=== PATIENT | male | born 1970 | race Caucasian/White ===

== ENCOUNTER 2018-08-01 16:52 | Inpatient (IN) | payer SELFPAY ==
[2018-08-01] MEDS ORDERED: NA CHLORIDE 0.9% 1,000 ML ONE ×3 (17:57→20:48)
[2018-08-01] MEDS ORDERED: NA CHLORIDE 0.9% 1,000 ML with FOLIC ACID 1 MG, THIAMINE HCL 100 MG, MULTIVITAMINS INJ ... IV ONE ×4 (18:00)
[2018-08-01 18:11] LABS: Absolute Lymphocytes (CBC) 0.8 K/uL (0.7-4.9); Absolute Monocytes 0.4 K/uL (0.1-1.3); Absolute Neutrophil 4.1 K/uL (1.8-8.0); Basophils % 1.1 % (0-1.3); Eosinophils % 0.5 % (0-4.4); Hematocrit 43.1 % (39.6-49.0); Lymphocytes % 14.7 % (15.3-44.8); MPV 8.8 fL (7.6-11.3); Monocytes % 7.9 % (3.3-12.3); RBC Red Blood Cell Count 4.83 M/uL (4.33-5.43)
[2018-08-01 18:14] LABS: Protime INR 1.1
[2018-08-01 18:25] LABS: ALT/SGPT 215 U/L (12-78); AST/SGOT 243 U/L (15-37); Albumin 3.7 g/dL (3.4-5.0); Alkaline Phosphatase 55 U/L (45-117); BUN Blood Urea Nitrogen 21 mg/dL (7-18); Bicarbonate 22 mmol/L (21-32); Bilirubin Direct 0.8 mg/dL (0-0.2); Bilirubin Total 1.4 mg/dL (0.2-1.0); Glucose Level 103 mg/dL (74-106); Magnesium 2.5 mg/dL (1.8-2.4); Potassium 3.9 mmol/L (3.5-5.1); Protein, Total 6.6 g/dL (6.4-8.2); Sodium Level 130 mmol/L (136-145); Troponin (Emerg Dept Use Only) 0.08 ng/mL (0.0-0.045)
[2018-08-01 18:38] LABS: Creatine Phosphokinase 1848 U/L (39-308)
[2018-08-01] MEDS ORDERED: ENOXAPARIN 100 MG/ML SYR SQ ONE (19:09)
[2018-08-01] MEDS ORDERED: ASPIRIN 81 MG CHEWABLE TABLET ONE (19:09)
[2018-08-01] MEDS ORDERED: METOPROLOL TAR 25 MG TAB ONE (19:09)
--- NOTE | 2018-08-01 19:40 | ER ---
Nurse's Notes [facility] Name: Maged Yanez Age: 48 yrs Sex: Male : 1970 Arrival Date: 08/01/2018 Time: 16:54 Bed 14 Private MD: Diagnosis: Rhabdomyolysis;Alcohol abuse with intoxication;Non-ST elevation (NSTEMI) myocardial infarction;Acute kidney failure Presentation: 08/01 16:55 Presenting complaint: Patient states: intermittent CP, shakiness and decreased appetite ss x 4 days. Pt reports that he recently went on a drinking binge for unknown period of time. Pt reports he has not drank in 4 days. Friend reports that he checked patient's blood sugar at home where it was 52. Transition of care: patient was not received from another setting of care. Onset of symptoms was July 28, 2018. Risk Assessment: Do you want to hurt yourself or someone else? Patient reports no desire to harm self or others. Initial Sepsis Screen: Does the patient meet any 2 criteria? HR > 90 bpm. Does the patient have a suspected source of infection? No. Patient's initial sepsis screen is negative. Care prior to arrival: None. 16:55 Method Of Arrival: Ambulatory ss 16:55 Acuity: GREGOR 2 ss Historical: - Allergies: 16:58 PENICILLINS; ss - PMHx: 16:58 Bipolar disorder; Hypertension; ss - Immunization history:: Adult Immunizations up to date. - Social history:: Smoking status: Patient/guardian denies using tobacco. - Ebola Screening: : Patient denies exposure to infectious person Patient denies travel to an Ebola-affected area in the 21 days before illness onset. Screenin:05 Abuse screen: Denies threats or abuse. Nutritional screening: decreased appetite x 4 rb1 days. Tuberculosis screening: No symptoms or risk factors identified. Fall Risk None identified. Assessment: 17:05 General: Appears uncomfortable, Behavior is calm, cooperative, pt. went on a 4 day rb1 drinking binge, last drink is unknown. Decreased appetite x 4 days. c/o weakness.. Pain: Complains of pain in anterior aspect of left upper chest Pain does not radiate. Pain currently is 5 out of 10 on a pain scale. Pain began 2-3 days ago. Neuro: Level of Consciousness is awake, alert, obeys commands, Oriented to person, place, time, situation, Reports weakness in generalized. Cardiovascular: Capillary refill < 3 seconds is brisk in bilateral fingers. Respiratory: Airway is patent Respiratory effort is even, unlabored, Respiratory pattern is regular, symmetrical. GI: Reports diarrhea, since x 1 day. : No signs and/or symptoms were reported regarding the genitourinary system. Derm: Skin is pink, warm \T\ dry. Musculoskeletal: Range of motion: intact in all extremities. 18:05 Reassessment: Patient appears in no apparent distress at this time. No changes from rb1 previously documented assessment. 19:00 Reassessment: Patient and/or family updated on plan of care and expected duration. Pain jb4 level reassessed. Patient is alert, oriented x 3, equal unlabored respirations, skin warm/dry/pink. Pt is resting in bed with both side rails up. 20:15 Reassessment: Patient and/or family updated on plan of care and expected duration. Pain jb4 level reassessed. Patient is alert, oriented x 3, equal unlabored respirations, skin warm/dry/pink. PT is shaking, ER provider and admitting physician at the bedside, see MAR for orders. 20:40 Reassessment: Pt still shaking, Provider at the bedside. See mar for orders. jb4 21:00 Reassessment: Patient and/or family updated on plan of care and expected duration. Pain jb4 level reassessed. Patient is alert, oriented x 3, equal unlabored respirations, skin warm/dry/pink. Shaking has decreased, provider notified. no further orders at this time. 22:00 Reassessment: Pt no longer shaking, provider notified report called to MENG Amaro. Pt jb4 being transferred to ICU bed 3 with nurse. Vital Signs: 16:58 BP 184 / 102; Pulse 93; Resp 16; Temp 98.6(O); Pulse Ox 98% on R/A; Weight 92.99 kg; ss Height 5 ft. 10 in. (177.80 cm); Pain 5/10; 17:22 BP 172 / 100; Pulse 95; Resp 17; Pulse Ox 97% on R/A; Pain 5/10; rb1 18:20 BP 161 / 92; Pulse 85; Resp 14; Pulse Ox 95% on R/A; rb1 19:00 BP 153 / 92; Pulse 78; Resp 16; Pulse Ox 95% on R/A; jb4 20:00 BP 144 / 88; Pulse 77; Resp 16; Pulse Ox 100% on R/A; jb4 21:00 BP 140 / 80; Pulse 73; Resp 18; Pulse Ox 95% on R/A; jb4 21:30 BP 130 / 71; Pulse 71; Resp 16; Pulse Ox 96% on R/A; jb4 16:58 Body Mass Index 29.41 (92.99 kg, 177.80 cm) ED Course: 16:54 Patient arrived in ED. mr 16:57 Triage completed. ss 16:58 Arm band placed on right wrist. ss 17:05 Mervat Hernandez, RN is Primary Nurse. rb1 17:05 Patient has correct armband on for positive identification. Bed in low position. Call rb1 light in reach. Side rails up X 1. munitions handler supervisor on. Pulse ox on. NIBP on. Warm blanket given. 17:05 Patient maintains SpO2 saturation greater than 95% on room air. rb1 17:16 Nathan Mccracken PA is PHCP. jr8 17:16 Jesus Manuel Gamez MD is Attending Physician. jr8 17:53 Inserted saline lock: 18 gauge in right antecubital area, using aseptic technique. la1 Blood collected. 17:55 EKG done, by ED staff, reviewed by Nathan SCHUSTER. dh3 18:37 Notified Nurse Practitioner and/or Physician Ethernet Network Architect of a critical lab result(s), CK ss 1848. 19:00 Report given to MENG Diego. rb1 19:39 Faiza Weiss MD is Hospitalizing Provider. jr8 20:15 XRAY Chest (1 view) In Process Unspecified. EDMS 20:26 Seizure precautions initiated. jb4 22:00 No provider procedures requiring assistance completed. Patient admitted, IV remains in jb4 place. Administered Medications: 17:54 Drug: NS 0.9% 1000 ml Route: IV; Rate: 1000 ml; Site: right antecubital; la1 18:44 Follow up: IV Status: Completed infusion rb1 18:22 Drug: Banana Bag - (NS 0.9% 1000 ml, foLIC Acid 1 mg, Thiamine 100 mg, Multivitamin 1 rb1 amp) Route: IV; Rate: calculated rate; Site: right antecubital; 20:22 Follow up: Response: No adverse reaction; IV Status: Completed infusion; IV Intake: jb4 1000ml 19:11 Drug: NS 0.9% 1000 ml Route: IV; Rate: 1000 ml; Site: right antecubital; rb1 20:00 Follow up: Response: No adverse reaction; IV Status: Completed infusion; IV Intake: jb4 1000ml 19:11 Drug: Aspirin Chewable Tablet 324 mg Route: PO; rb1 20:00 Follow up: Response: No adverse reaction jb4 19:11 Drug: Metoprolol 25 mg Route: PO; rb1 20:00 Follow up: Response: No adverse reaction jb4 19:11 Drug: Lovenox 1 mg/kg Route: Sub-Q; Site: right lower abdomen; rb1 22:20 Follow up: Response: No adverse reaction jb4 20:15 Drug: Ativan 2 mg Route: IVP; Site: right antecubital; jb4 20:30 Follow up: Response: No adverse reaction; Marked relief of symptoms jb4 20:41 Drug: Ativan 2 mg Route: IVP; Site: right antecubital; jb4 22:00 Follow up: Response: No adverse reaction; Marked relief of symptoms jb4 20:45 Drug: NS 0.9% 1000 ml Route: IV; Rate: 125 ml/hr; Site: right antecubital; jb4 22:00 Follow up: Response: No adverse reaction; IV Status: Infusion continued upon admission jb4 Intake: 20:00 IV: 1000ml; Total: 1000ml. jb4 20:22 IV: 1000ml; Total: 2000ml. jb4 Outcome: 19:40 Decision to Hospitalize by Provider. carroll 22:00 Admitted to ICU accompanied by nurse, via stretcher, room 3, on monitor, with chart, jb4 Report called to MENG Amaro 22:00 Condition: stable 22:00 Discharge instructions given to patient, Instructed on the need for admit, Demonstrated understanding of instructions. 22:20 Patient left the ED. jb4 Signatures: Dispatcher [employer] EVITA Ingrid OjedaRody, RN RN Nathan Wiggins PA PA jr8 Valdez Magana RN RN la1 Mervat Hernandez RN RN rb1 Mark Sykes RN RN jb4 Jessy Morales [facility]
--- NOTE | 2018-08-01 19:40 | EDPHYS ---
Physician Documentation [facility] Name: Maged Yanez Age: 48 yrs Sex: Male : 1970 Arrival Date: 08/01/2018 Time: 16:54 Bed 14 Private MD: ED Physician Jesus Manuel Gamez HPI: 08/01 18:52 This 48 yrs old Male presents to ER via Ambulatory with complaints of Low jr8 Blood Sugar, Chest Pain, Weakness. 18:52 Friend of patient stated that he found him shaking bad this afternoon. Stated that he jr8 sugar was low. Patient stated that he just got off a week long drinking binge. Has not done this in several years. Use to be a long standing drinker. Stated that he feels extremely weak and has some chest pain to left side as well . Severity of symptoms: At their worst the symptoms were moderate in the emergency department the symptoms are unchanged. The patient has not experienced similar symptoms in the past. The patient has not recently seen a physician. Historical: - Allergies: 16:58 PENICILLINS; ss - PMHx: 16:58 Bipolar disorder; Hypertension; ss - Immunization history:: Adult Immunizations up to date. - Social history:: Smoking status: Patient/guardian denies using tobacco. - Ebola Screening: : Patient denies exposure to infectious person Patient denies travel to an Ebola-affected area in the 21 days before illness onset. ROS: 18:52 Eyes: Negative for injury, pain, redness, and discharge, ENT: Negative for injury, jr8 pain, and discharge, Neck: Negative for injury, pain, and swelling, Respiratory: Negative for shortness of breath, cough, wheezing, and pleuritic chest pain, Abdomen/GI: Negative for abdominal pain, nausea, vomiting, diarrhea, and constipation, Back: Negative for injury and pain, MS/Extremity: Negative for injury and deformity, Skin: Negative for injury, rash, and discoloration, Neuro: Negative for headache, weakness, numbness, tingling, and seizure. 18:52 Constitutional: Positive for fatigue, malaise. 18:52 Cardiovascular: Positive for chest pain, Negative for edema, orthopnea, palpitations, paroxysmal nocturnal dyspnea. Exam: 18:52 Eyes: Pupils equal round and reactive to light, extra-ocular motions intact. Lids and jr8 lashes normal. Conjunctiva and sclera are non-icteric and not injected. Cornea within normal limits. Periorbital areas with no swelling, redness, or edema. ENT: Nares patent. No nasal discharge, no septal abnormalities noted. Tympanic membranes are normal and external auditory canals are clear. Oropharynx with no redness, swelling, or masses, exudates, or evidence of obstruction, uvula midline. Mucous membranes moist. Neck: Trachea midline, no thyromegaly or masses palpated, and no cervical lymphadenopathy. Supple, full range of motion without nuchal rigidity, or vertebral point tenderness. No Meningismus. Cardiovascular: Regular rate and rhythm with a normal S1 and S2. No gallops, murmurs, or rubs. Normal PMI, no JVD. No pulse deficits. Respiratory: Lungs have equal breath sounds bilaterally, clear to auscultation and percussion. No rales, rhonchi or wheezes noted. No increased work of breathing, no retractions or nasal flaring. Abdomen/GI: Soft, non-tender, with normal bowel sounds. No distension or tympany. No guarding or rebound. No evidence of tenderness throughout. Back: No spinal tenderness. No costovertebral tenderness. Full range of motion. Skin: Warm, dry with normal turgor. Normal color with no rashes, no lesions, and no evidence of cellulitis. MS/ Extremity: Pulses equal, no cyanosis. Neurovascular intact. Full, normal range of motion. Neuro: Awake and alert, GCS 15, oriented to person, place, time, and situation. Cranial nerves II-XII grossly intact. Motor strength 5/5 in all extremities. Sensory grossly intact. Cerebellar exam normal. Normal gait. Vital Signs: 16:58 BP 184 / 102; Pulse 93; Resp 16; Temp 98.6(O); Pulse Ox 98% on R/A; Weight 92.99 kg; ss Height 5 ft. 10 in. (177.80 cm); Pain 5/10; 17:22 BP 172 / 100; Pulse 95; Resp 17; Pulse Ox 97% on R/A; Pain 5/10; rb1 18:20 BP 161 / 92; Pulse 85; Resp 14; Pulse Ox 95% on R/A; rb1 19:00 BP 153 / 92; Pulse 78; Resp 16; Pulse Ox 95% on R/A; jb4 20:00 BP 144 / 88; Pulse 77; Resp 16; Pulse Ox 100% on R/A; jb4 21:00 BP 140 / 80; Pulse 73; Resp 18; Pulse Ox 95% on R/A; jb4 21:30 BP 130 / 71; Pulse 71; Resp 16; Pulse Ox 96% on R/A; jb4 16:58 Body Mass Index 29.41 (92.99 kg, 177.80 cm) ss MDM: 17:16 Patient medically screened. [facility] 19:23 Data reviewed: vital signs, nurses notes, lab test result(s), EKG, radiologic studies, 8 plain films, and as a result, I will admit patient. Data interpreted: Pulse oximetry: on room air is 95 %. Interpretation: normal. Counseling: I had a detailed discussion with the patient and/or guardian regarding: the historical points, exam findings, and any diagnostic results supporting the discharge/admit diagnosis, lab results, radiology results, the need for further work-up and treatment in the hospital. Physician consultation: Faiza Weiss MD was called at 19:24, was contacted at 19:24, regarding admission, consult, patient's condition, and will see patient in ED. 08/01 17:39 Order name: Acetaminophen; Complete Time: 18:41 [facility] 08/01 17:39 Order name: Basic Metabolic Panel; Complete Time: 18:41 [facility] 08/01 17:39 Order name: CBC with Diff; Complete Time: 18:41 [facility] 08/01 17:39 Order name: ETOH Level; Complete Time: 18:41 [facility] 08/01 17:39 Order name: Hepatic Function; Complete Time: 18:41 [facility] 08/01 17:39 Order name: PT-INR; Complete Time: 18:41 [facility] 08/01 17:39 Order name: Ptt, Activated; Complete Time: 18:41 [facility] 08/01 17:39 Order name: Salicylate; Complete Time: 18:41 [facility] 08/01 17:39 Order name: Urine Drug Screen [facility] 08/01 17:39 Order name: Troponin (emerg Dept Use Only); Complete Time: 18:41 [facility] 08/01 17:39 Order name: CK; Complete Time: 18:41 [facility] 08/01 17:39 Order name: Magnesium; Complete Time: 18:41 08/01 17:39 Order name: Osmolality, Serum; Complete Time: 19:21 8 08/01 18:41 Order name: Glucose, Ancillary Testing; Complete Time: 18:42 EDMS 08/01 17:39 Order name: EKG; Complete Time: 17:41 08/01 17:39 Order name: EKG - Nurse/Tech; Complete Time: 17:52 08/01 17:39 Order name: IV Saline Lock; Complete Time: 17:52 08/01 17:39 Order name: Labs collected and sent; Complete Time: 17:52 08/01 19:43 Order name: XRAY Chest (1 view); Complete Time: 21:07 Administered Medications: 17:54 Drug: NS 0.9% 1000 ml Route: IV; Rate: 1000 ml; Site: right antecubital; la1 18:44 Follow up: IV Status: Completed infusion rb1 18:22 Drug: Banana Bag - (NS 0.9% 1000 ml, foLIC Acid 1 mg, Thiamine 100 mg, Multivitamin 1 rb1 amp) Route: IV; Rate: calculated rate; Site: right antecubital; 20:22 Follow up: Response: No adverse reaction; IV Status: Completed infusion; IV Intake: jb4 1000ml 19:11 Drug: NS 0.9% 1000 ml Route: IV; Rate: 1000 ml; Site: right antecubital; rb1 20:00 Follow up: Response: No adverse reaction; IV Status: Completed infusion; IV Intake: jb4 1000ml 19:11 Drug: Aspirin Chewable Tablet 324 mg Route: PO; rb1 20:00 Follow up: Response: No adverse reaction jb4 19:11 Drug: Metoprolol 25 mg Route: PO; rb1 20:00 Follow up: Response: No adverse reaction jb4 19:11 Drug: Lovenox 1 mg/kg Route: Sub-Q; Site: right lower abdomen; rb1 22:20 Follow up: Response: No adverse reaction jb4 20:15 Drug: Ativan 2 mg Route: IVP; Site: right antecubital; jb4 20:30 Follow up: Response: No adverse reaction; Marked relief of symptoms jb4 20:41 Drug: Ativan 2 mg Route: IVP; Site: right antecubital; jb4 22:00 Follow up: Response: No adverse reaction; Marked relief of symptoms jb4 20:45 Drug: NS 0.9% 1000 ml Route: IV; Rate: 125 ml/hr; Site: right antecubital; jb4 22:00 Follow up: Response: No adverse reaction; IV Status: Infusion continued upon admission jb4 Disposition: 08/01/18 19:40 Hospitalization ordered by Faiza Weiss for Inpatient Admission. Preliminary diagnosis are Rhabdomyolysis, Alcohol abuse with intoxication, Non-ST elevation (NSTEMI) myocardial infarction, Acute kidney failure. - Bed requested for Intensive Care Unit. - Status is Inpatient Admission. jb4 - Condition is Stable. - Problem is new. - Symptoms have improved. UTI on Admission? No Addendum: 08/05/2018 21:57 Co-signature as Attending Physician, Jesus Manuel Gamez MD. g s Signatures: Dispatcher [employer] EDMS Rody Barbosa RN RN Nathan Mccracken PA PA jr8 Valdez Magana RN RN la1 Anna Asencio RN RN Mervat Hernandez RN RN [facility] Mark Sykes RN RN jb4 Jesus Manuel Gamez MD MD Corrections: (The following items were deleted from the chart) 08/01 19:45 19:40 Hospitalization Ordered by Faiza Weiss MD for Inpatient Admission. Preliminary jr8 diagnosis is Rhabdomyolysis; Alcohol abuse with intoxication; Non-ST elevation (NSTEMI) myocardial infarction; Acute kidney failure. Bed requested for Intensive Care Unit. Status is Inpatient Admission. Condition is Stable. Problem is new. Symptoms have improved. UTI on Admission? No. jr8 20:44 19:45 08/01/2018 19:40 Hospitalization Ordered by Faiza Weiss MD for Inpatient [facility] Admission. Preliminary diagnosis is Rhabdomyolysis; Alcohol abuse with intoxication; Non-ST elevation (NSTEMI) myocardial infarction; Acute kidney failure. Bed requested for Telemetry/MedSurg (Inpatient). Status is Inpatient Admission. Condition is Stable. Problem is new. Symptoms have improved. UTI on Admission? No. jr8 20:53 20:44 08/01/2018 19:40 Hospitalization Ordered by Faiza Weiss MD for Inpatient cg Admission. Preliminary diagnosis is Rhabdomyolysis; Alcohol abuse with intoxication; Non-ST elevation (NSTEMI) myocardial infarction; Acute kidney failure. Bed requested for Intensive Care Unit. Status is Inpatient Admission. Condition is Stable. Problem is new. Symptoms have improved. UTI on Admission? No. jr8 22:20 20:53 08/01/2018 19:40 Hospitalization Ordered by Faiza Weiss MD for Inpatient jb4 Admission. Preliminary diagnosis is Rhabdomyolysis; Alcohol abuse with intoxication; Non-ST elevation (NSTEMI) myocardial infarction; Acute kidney failure. Bed requested for Intensive Care Unit. Status is Inpatient Admission. Condition is Stable. Problem is new. Symptoms have improved. UTI on Admission? No. cg
[2018-08-01] MEDS ORDERED: LORazepam 2 MG/ML VIAL ONE ×2 (20:23→20:49)
--- NOTE | 2018-08-01 20:39 | P.HP ---
Certification for Inpatient Patient admitted to: Inpatient With expected LOS: >2 Midnights Practitioner: I am a practitioner with admitting privileges, knowledge of patient current condition, hospital course, and medical plan of care. Services: Services provided to patient in accordance with Admission requirements found in Title 42 Section 412.3 of the Code of Federal Regulations Patient History Date of Service: 08/01/18 Reason for admission: alcohol withdrawal, chest pain History of Present Illness: Mr Yanez is a 48 years old male with history of HTN, Bipolar disorder, he states that use to drink heavily until 7 years ago. The patient is from [place] and is this area working. He started to drink again about 4 month ago, he is not very reliable with time frame, about 1/5 of vodka daily. He was not eating for the last 4 days, just binging more alcohol than usual. He states that since yesterday has been feeling more weak, with nausea but no vomiting, also chest pain, sharp, exacerbated with breathing movements, no SOB or diaphoresis episode. BS at home was 57 mg/dl. Last time he drank was this morning, alcohol level still elevated 168. The patient is asking for help, he wants to stop drinking. He denied any dark or bloody stools, no bloody emesis either. Lab work remarkable for hyponatreamia, abnormal liver enzymes, elevated creatinine, elevated total CK and trop I without ST-T changes on EKG. The patient states that he slept on the floor for several hours recently. At my encounter he was already shaking, tachycardic and hypertensive, no fever. Home medications list reviewed: Yes - Past Medical/Surgical History -: alcohol abuse -: bipolar -: HTN Past Surgical History: Reviewed- Non-Contributory - Family History Family History: Reviewed- Non-Contributory - Social History Smoking Status: Never smoker Alcohol use: Yes CD- Drugs: No Place of Residence: Home Review of Systems 10-point ROS is otherwise unremarkable Physical Examination - Physical Exam General: Alert, In no apparent distress, Cooperative HEENT: Atraumatic, PERRLA, Mucous membr. moist/pink, EOMI, Sclerae nonicteric Neck: Supple, 2+ carotid pulse no bruit, No LAD, Without JVD or thyroid abnormality Respiratory: Clear to auscultation bilaterally, Normal air movement Cardiovascular: Regular rate/rhythm, Normal S1 S2 Gastrointestinal: Normal bowel sounds, No tenderness Musculoskeletal: No tenderness Integumentary: No rashes Neurological: Normal speech, Normal strength at 5/5 x4 extr, Normal tone, Normal affect Lymphatics: No axilla or inguinal lymphadenopathy - Studies Laboratory Data (last 24 hrs) 08/01/18 17:50: PT 12.9 H, INR 1.10, APTT 32.3 08/01/18 17:50: WBC 5.5, Hgb 14.8, Hct 43.1, Plt Count 151 L 08/01/18 17:50: Sodium 130 L, Potassium 3.9, BUN 21 H, Creatinine 1.47 H, Glucose 103, Magnesium 2.5 H, Total Bilirubin 1.4 H, AST 243 H, ALT 215 H, Alkaline Phosphatase 55 Assessment and Plan - Problems (Diagnosis) (1) HTN (hypertension) Current Visit: Yes Status: Acute Qualifiers: Hypertension type: unspecified Qualified Code(s): I10 - Essential (primary ) hypertension (2) Alcohol intoxication Current Visit: Yes Status: Acute Qualifiers: Complication of substance-induced condition: uncomplicated Qualified Code(s ): F10.920 - Alcohol use, unspecified with intoxication, uncomplicated (3) Alcohol withdrawal Current Visit: Yes Status: Acute Qualifiers: Complication of substance-induced condition: uncomplicated Qualified Code(s ): F10.230 - Alcohol dependence with withdrawal, uncomplicated (4) Acute renal injury Current Visit: Yes Status: Acute (5) Hyponatremia Current Visit: Yes Status: Acute (6) Abnormal liver enzymes Current Visit: Yes Status: Acute - Plan The patient will be admitted to the hospital due to alcohol intoxication, already starting with alcohol withdrawal. He has chest pain as well, atypical per presentation, however, trop I elevated. This could be secondary to mild rhabdomyolisis. Will order CIWA protocol, Cardiology consult. Will admit to ICU for close monitoring. - Advance Directives Does patient have a Living Will: No Does patient have a Durable POA for Healthcare: No
--- NOTE | 2018-08-01 20:51 | RAD REPORT ---
EXAM DESCRIPTION: [place] Single View08/01/2018 8:15 pm CLINICAL HISTORY: Chest pain COMPARISON: none FINDINGS: A 5 millimeter nodular opacity overlies the right lung base. The remainder of the lungs appear clear of acute infiltrate. The heart is normal size IMPRESSION: 5 millimeter nodular opacity which overlies the right lung base may represent a pulmona ry nodule or confluence of ribs and vessels. Followup PA and lateral chest series in 6 months recomme nded for re-evaluation
[2018-08-01] MEDS ORDERED: FLUMAZENIL 0.1 MG/ML (5 mL VIAL) IV PRN (22:01)
[2018-08-01] MEDS ORDERED: NA CHLORIDE 0.9% 1,000 ML IV SCH (22:01)
[2018-08-01] MEDS ORDERED: ONDANSETRON 4 MG/2 ML VIAL IV PRN (22:01)
[2018-08-01 22:51] LABS: Absolute Lymphocytes (CBC) 1.1 K/uL (0.7-4.9); Absolute Monocytes 0.7 K/uL (0.1-1.3); Absolute Neutrophil 3.9 K/uL (1.8-8.0); Eosinophils % 0.8 % (0-4.4); Hematocrit 39.8 % (39.6-49.0); Lymphocytes % 19.5 % (15.3-44.8); MPV 8.6 fL (7.6-11.3); Monocytes % 11.7 % (3.3-12.3); RBC Red Blood Cell Count 4.44 M/uL (4.33-5.43)
[2018-08-01 23:16] LABS: Albumin 3.2 g/dL (3.4-5.0); Bilirubin Total 1.3 mg/dL (0.2-1.0); Potassium 3.9 mmol/L (3.5-5.1); Protein, Total 5.8 g/dL (6.4-8.2); Troponin I 0.12 ng/mL (0.0-0.045)
[2018-08-01] MEDS: LORazepam 2 MG/ML VIAL IV SCH (23:39)
[2018-08-02 00:16] LABS: Urine Appearance CLEAR; Urine Bilirubin NEGATIVE (NEG); Urine Blood 3+ (NEG); Urine Color DK YELLOW; Urine Glucose NEGATIVE (NEG); Urine Protein 2+ (NEG); Urine Specific Gravity 1.015 (1.005-1.030)
[2018-08-02 00:27] LABS: Urine Microscopic Reflex ORDER UMIC
[2018-08-02 00:32] LABS: Barbiturates NEGATIVE (NEGATIVE); Benzodiazepines POSITIVE (NEGATIVE); Cocaine NEGATIVE (NEGATIVE); METHAMPHETAM NEGATIVE (NEGATIVE); Methadone NEGATIVE (NEGATIVE); Opiates NEGATIVE (NEGATIVE); Phencyclidine NEGATIVE (NEGATIVE); THC Cannibis NEGATIVE (NEGATIVE)
[2018-08-02 00:32] LABS: Albumin 3.1 g/dL (3.4-5.0)
[2018-08-02 01:11] LABS: Urine Bacteria <20 /HPF (NONE SEEN); Urine Culture Reflex Order NOT NEEDED; Urine RBC 20-50 /HPF (NONE SEEN)
[2018-08-02] MEDS: LORazepam 2 MG/ML VIAL IV SCH ×6 (02:17→21:27)
[2018-08-02 05:55] LABS: Magnesium 2.2 mg/dL (1.8-2.4); Potassium 3.6 mmol/L (3.5-5.1)
[2018-08-02] MEDS ORDERED: D5 0.9 NS 1,000 ML IV SCH (06:00)
[2018-08-02] MEDS ORDERED: KCL 20 MEQ/100 mL IVPB 20 MEQ/100 ML BAG IV SCH (07:00)
--- NOTE | 2018-08-02 09:32 | P.PN ---
Subjective Date of Service: 08/02/18 Primary Care Provider: Celestine Mccall Chief Complaint: alcohol withdrawal, chest pain Subjective: Other (Patient alert this morning. Patient is a poor historian) Physical Examination - Vital Signs Temperature: 98.5 F Blood Pressure: 157/89 Pulse: 89 Respirations: 17 Pulse Ox (%): 96 - Physical Exam General: Alert, In no apparent distress, Cooperative HEENT: Atraumatic Neck: Supple Respiratory: Clear to auscultation bilaterally, Normal air movement Cardiovascular: Normal pulses, Regular rate/rhythm Gastrointestinal: Normal bowel sounds, Soft and benign, Non-distended, No tenderness, No masses, No rebound, No guarding Musculoskeletal: No erythema, No tenderness, No warmth Integumentary: No tenderness/swelling, No erythema, No warmth, No cyanosis Neurological: Normal speech, Normal strength at 5/5 x4 extr, Normal tone, Abnormal affect (Poor eye contact.) - Studies Laboratory Data (last 24 hrs) 08/01/18 17:50: PT 12.9 H, INR 1.10, APTT 32.3 08/01/18 17:50: WBC 5.5, Hgb 14.8, Hct 43.1, Plt Count 151 L 08/01/18 17:50: Sodium 130 L, Potassium 3.9, BUN 21 H, Creatinine 1.47 H, Glucose 103, Magnesium 2.5 H, Total Bilirubin 1.4 H, AST 243 H, ALT 215 H, Alkaline Phosphatase 55 Medications List Reviewed: Yes Assessment & Plan Discharge Plan: Home Plan to discharge in: Greater than 2 days Physician Review Additional Text: Impression: Alcohol abuse with possible withdrawal Hyponatremia with acute renal injury Recent fall and elevated CPK/troponin suspect rhabdomyolysis Hypoglycemia likely from malnutrition Hypertension Elevated liver function likely related to alcohol abuse Hypocalcemia likely from dehydration Bipolar disorder on lithium Plan: Alcohol abuse with possible withdrawal: Patient remains in ICU. Alcohol level was elevated upon admission. Continue to monitor closely. Patient will require Ativan if agitated. Will monitor for alcohol withdrawal. Patient also with acute renal injury with hyponatremia, elevated CPK suspect rhabdomyolysis, hypoglycemia with malnutrition, elevated liver function likely related to alcohol, and bipolar disorder. Will order abdominal ultrasound an echocardiogram to further evaluate. Continue IV fluids. Will increase IV fluids. Continued IV banana bag. Cardiology consulted to evaluate elevated CPK and mild elevation in his troponin. Will need to obtain a list of his home medication. Will check lithium level. Will also obtain lab for hepatitis, HIV , and tsh-free T4. Will also obtain CT head due to recent fall. Continue supportive care. I will turn the service over to Dr. Scott tomorrow. I will go over the plan of care with her. Hyponatremia with acute renal injury: This has improved. Continue with IV fluids. Abdominal ultrasound obtained. Recent fall and elevated CPK/troponin suspect rhabdomyolysis: Patient with recent fall. Will check CT scan of head to evaluate for bleed. Continue IV fluids. Will monitor and adjust appropriately. Cardiology consulted for further recommendation Hypoglycemia likely from malnutrition: Will provide glucose and IV. Will need to address his malnutrition due to his alcohol abuse once stable. Hypertension: Will hold his MARTHA-inhibitor. Will provide IV medication as needed. Elevated liver function likely related to alcohol abuse: Will send for hepatitis panel and HIV. Will obtain abdominal ultrasound. Will monitor liver function tests. Hypocalcemia likely from dehydration: Will check PTH and ionized calcium. This is likely from dehydration. Will monitor closely. Continue IV fluids. Bipolar disorder on lithium: Will need to obtain home medication. Will verify when he last took his lithium. Will need to assess lithium level to make sure there is no toxicity. Time Spent Managing Pts Care (In Minutes): 55
--- NOTE | 2018-08-02 09:41 | EKG ---
Test Date: 2018-08-01 Test Time: 17:47:49 Assistant Editor: JUDSON MEASUREMENT RESULTS: Intervals: Rate: 85 DC: 124 QRSD: 100 QT: 364 QTc: 433 Lenora: P: 37 DC: 124 QRS: 55 T: 63 INTERPRETIVE STATEMENTS: Normal sinus rhythm RSR' or QR pattern in V1 suggests right ventricular conduction delay Borderline ECG No previous ECG available for comparison Electronically Signed On 08-02-18 09:40:12 CDT by Festus Le
[2018-08-02] MEDS: FOLIC ACID 1 MG, MULTIVITAMINS INJ 10 ML, THIAMINE HCL 100 MG in NA CHLORIDE 0.9% 1,000 ML IV SCH (09:46)
[2018-08-02] MEDS: FAMOTIDINE 20 MG/2 ML VIAL IV SCH ×2 (09:46→21:21)
[2018-08-02] MEDS: D5 0.9 NS 1,000 ML IV SCH ×3 (10:00→21:22)
[2018-08-02 10:45] LABS: Thyroid Stimulating Hormone 1.4 uIU/mL (0.360-3.740)
--- NOTE | 2018-08-02 11:17 | RAD REPORT ---
EXAM DESCRIPTION: CT - Head Brain Wo Cont - 08/02/2018 11:07 am CLINICAL HISTORY: Fall, Alcohol abuse Fall, trauma, head injury COMPARISON: No comparisons TECHNIQUE: All CT scans are performed using dose optimization technique as appropriate and may inclu de automated exposure control or mA/KV adjustment according to patient size. FINDINGS: No intracranial hemorrhage, hydrocephalus or extra-axial fluid collection.No areas of brai n edema or evidence of midline shift. The paranasal sinuses and mastoids are clear. The calvarium is intact. IMPRESSION: No acute intracranial abnormality.
[2018-08-02] MEDS ORDERED: TRAMADOL HCL 50 MG TAB PO PRN (11:27)
[2018-08-02] MEDS: ACETAMINOPHEN 500 MG TAB PO PRN ×3 (11:37→23:47)
[2018-08-02] MEDS ORDERED: ACETAMINOPHEN 500 MG TAB PO SCH (14:00)
--- NOTE | 2018-08-02 15:03 | CON ---
History Of Present Illness: Mr. Yanez came to the hospital because he was feeling weak for about 7 d ays. His only caloric intake was vodka. He was a heavy alcoholic in the past, spent more than a dec aminah without using any alcoholic beverages, but beginning several months ago, he resumed drinking, and now he is basically seeking help to help him detoxify. His last drink was about 36 hours ago and he is starting to have a lot of symptoms of delirium tremens. He does not have a history of heart dise ase or pancreatitis, but it looks like he has pancreatitis. He has mild elevation of troponin and we suspect he probably is not having acute coronary syndrome, but has a lot of metabolic problems that relieve on a small release of troponin. I would recommend tomorrow we do an echo to see if there is wall motion abnormality. Medications: Outpatient medications were lisinopril, lithium carbonate, and Librium. Allergies: HE IS ALLERGIC TO PENICILLIN. Social History: He abuses alcohol, uses tobacco. Physical Examination: General: He appears to be much older than his stated age of 48, alert, oriented, pleasant, but somew hat somnolent, little bit jittery, not hallucinating. Lungs: Reveal decreased breath sounds in the base. No wheezes or crackles. Heart: Regular rate and rhythm. No significant murmur. Abdomen: Soft. Extremities: Palpable distal pulses, but diminished. Laboratory Data: His electrocardiogram shows sinus rhythm. There is an RSR prime or sometimes alvarez d incomplete right bundle, otherwise it is normal. Heart rate 85. Impression And Plan: He is not having an acute coronary syndrome. He is having alcohol withdrawal, probably in the very early stages of delirium tremens. Treatment with large doses of beta-blockers i s usually helpful along with all the other usual things that are done. I would recommend we do an ec hocardiogram tomorrow at some point and see about his heart that way. I would not recommend a cardia c cath or stress test at least presently. SH/MODL Voice ID: [id number] Report ID: [id number]
[2018-08-02] MEDS: ENOXAPARIN 30 MG/0.3 ML SQ SCH (17:26)
[2018-08-03] MEDS: LORazepam 2 MG/ML VIAL IV SCH ×5 (01:49→17:49)
[2018-08-03 05:08] LABS: Absolute Monocytes 0.4 K/uL (0.1-1.3); Absolute Neutrophil 1.8 K/uL (1.8-8.0); Basophils % 0.7 % (0-1.3); Eosinophils % 2.5 % (0-4.4); Hematocrit 37.1 % (39.6-49.0); Lymphocytes % 30.7 % (15.3-44.8); MPV 8.2 fL (7.6-11.3); Monocytes % 12.5 % (3.3-12.3); RBC Red Blood Cell Count 4.12 M/uL (4.33-5.43)
[2018-08-03 05:55] LABS: Albumin 2.9 g/dL (3.4-5.0); Bilirubin Total 1.2 mg/dL (0.2-1.0); Magnesium 1.9 mg/dL (1.8-2.4); Potassium 3.2 mmol/L (3.5-5.1); Protein, Total 5.5 g/dL (6.4-8.2)
[2018-08-03] MEDS: D5 0.9 NS 1,000 ML IV SCH ×2 (06:00→15:33)
[2018-08-03] MEDS: KCL 20 MEQ/100 mL IVPB 20 MEQ/100 ML BAG IV SCH ×2 (07:06→09:50)
--- NOTE | 2018-08-03 07:58 | RAD REPORT ---
EXAM DESCRIPTION: US - Abdomen Exam Complete - 08/02/2018 11:10 pm CLINICAL HISTORY: Abnormal liver function, acute renal injury COMPARISON: None. FINDINGS: Gallbladder size is normal. No gallstones, wall thickening or pericholecystic fluid. Commo n bile duct is normal with no common duct stone identified. Liver is enlarged at 20 cm. No capsular nodularity. Prominent, increased parenchymal echogenicity not ed with poor sonographic penetrance. This is a pattern typical for diffuse fatty infiltration. This p attern decreases sensitivity of liver lesion detection. No focal liver lesions are identifiable. Spleen is normal size at 9 cm. No focal splenic abnormality. The pancreas is obscured at the tail. No hydronephrosis or suspicious mass in either kidney. Cortical thickness and echogenicity are normal . Right kidney is 12.6 x 4.7 x 5.5 cm. Left kidney is 12.4 x 5.0 x 5.9 cm. Aorta and IVC show no suspicious findings. No ascites or bulky lymphadenopathy. IMPRESSION: No renal abnormality identifiable. Enlarged liver with prominent fatty infiltration pattern. Fatty infiltration pattern decreases sensit ivity for liver lesion detection. Pancreatic tail is obscured. Concerns for a pancreatic process can be addressed with CT imaging.
[2018-08-03] MEDS: FAMOTIDINE 20 MG/2 ML VIAL IV SCH ×2 (08:29→19:57)
[2018-08-03] MEDS: FOLIC ACID 1 MG, MULTIVITAMINS INJ 10 ML, THIAMINE HCL 100 MG in NA CHLORIDE 0.9% 1,000 ML IV SCH (08:30)
--- NOTE | 2018-08-03 10:40 | ECHO ---
HEIGHT: 5 ft 10 in WEIGHT: 196 lb 0 oz DATE OF STUDY: 08/03/[address]: Yan Houston DO 2-DIMENSIONAL: YES M.MODE: YES DOPPLER: YES COLOR FLOW: YES TDS: NO PORTABLE: YES DEFINITY: NO BUBBLE STUDY: NO DIAGNOSIS: ELEVATED TROPONIN, HYPERTENSION CARDIAC HISTORY: CATHERIZATION: NO SURGERY: NO PROSTHETIC VALVE: NO PACEMAKER: NO MEASUREMENTS (cm) DIASTOLIC (NORMALS) SYSTOLIC (NORMALS) IVSd 1.5 (0.6-1.2) LA Diam 5.0 (1.9-4.0) LVEF 56% LVIDd 5.3 (3.5-5.7) LVIDs 3.7 (2.0-3.5) %FS 30% LVPWd 1.4 (0.6-1.2) Ao Diam 3.2 (2.0-3.7) 2 DIMENSIONAL ASSESSMENT: RIGHT ATRIUM: NORMAL LEFT ATRIUM: DILATED RIGHT VENTRICLE: NORMAL LEFT VENTRICLE: LEFT VENTRICULAR HYPERTROPHY TRICUSPID VALVE: NORMAL MITRAL VALVE: NORMAL PULMONIC VALVE: NORMAL AORTIC VALVE: NORMAL PERICARDIAL EFFUSION: NONE AORTIC ROOT: NORMAL LEFT VENTRICULAR WALL MOTION: NORMAL DOPPLER/COLOR FLOW: MILD MITRAL AND TRICUPSID REGURGITATION. NORMAL RIGHT VENTRICULAR SYSTOLIC PRESSURE. COMMENTS: NORMAL LEFT VENTRICULAR EJECTION FRACTION. LEFT VENTRICULAR HYPERTROPHY. DILATED LEFT ATRIUM. MILD MITRAL AND TRICUPSID REGURGITATION. TECHNOLOGIST: Jovita LE
[2018-08-03] MEDS: HYDRALAZINE HCL 20 MG/ML VIAL IV PRN (14:20)
--- NOTE | 2018-08-03 16:20 | P.PN ---
Subjective Date of Service: 08/03/18 Primary Care Provider: Celestine Mccall Chief Complaint: alcohol withdrawal, chest pain Subjective: Improving Patient seen and examined at bedside. No family at bedside. Chart reviewed and case discussed with nursing staff. Still some bouts of confusion. Attempted to on both leads and start walking this morning. Continues to be high risk for fall Review of Systems 10-point ROS is otherwise unremarkable Physical Examination - Vital Signs Temperature: 99.1 F Blood Pressure: 148/72 Pulse: 77 Respirations: 14 Pulse Ox (%): 95 - Physical Exam General: Alert, Oriented x3, Mild distress, Other (Very sleepy, talking with eyes closed, though oriented x3) HEENT: Atraumatic, PERRLA, EOMI Neck: Supple, JVD not distended Respiratory: Clear to auscultation bilaterally, Normal air movement Cardiovascular: Regular rate/rhythm, Normal S1 S2 Gastrointestinal: Normal bowel sounds, No tenderness Musculoskeletal: No tenderness Integumentary: No rashes Neurological: Normal speech, Normal tone, Normal affect Lymphatics: No axilla or inguinal lymphadenopathy - Studies Medications List Reviewed: Yes Assessment And Plan - Plan Alcohol abuse with possible withdrawal: Patient remains in ICU. Alcohol level was elevated upon admission. Continue to monitor closely. Patient will require Ativan if agitated. Monitor for alcohol withdrawal. Continue IV fluids and a banana bag Continue supportive care Hyponatremia with acute renal injury: Resolved. Continue with IV fluids. Abdominal ultrasound obtained. Recent fall and elevated CPK/troponin suspect rhabdomyolysis: Improving Patient with recent fall. CT scan of the head negative for any acute abnormalities. Patient still unsteady on his feet, will get physical therapy to evaluate Hypoglycemia likely from malnutrition: Will provide glucose and IV as needed. Will need to address his malnutrition due to his alcohol abuse once stable. Hypertension: Will hold his MARTHA-inhibitor. Will provide IV medication as needed. Elevated liver function likely related to alcohol abuse: Will send for hepatitis panel and HIV, pending. Will monitor liver function tests, trending down as of now. Abdominal ultrasound with fatty infiltration of the liver and obscuring of pancreatic tail. This could be possible pancreatitis, lipase initially was elevated. Patient does have a history of chronic alcohol use and therefore high risk for pancreatitis. Clinically, patient without any abdominal pain at this time, tolerating a diet. Will continue to monitor clinically. If symptoms worsen, will get a CT abdomen to evaluate further. Hypocalcemia, after correction for hypoalbuminemia PTH elevated and ionized calcium pending. Patient has multiple etiologies that could cause hypocalcemia including chronic alcohol, rhabdo, electrolyte imbalance secondary to chronic alcoholism, dehydration Will monitor closely. Continue IV fluids. Bipolar disorder on lithium: [place] level was low. Will restart home medications, once we can reconcile home medication DVT prophylaxis: Lovenox GI prophylaxis: None Diet: Regular Disposition: Pending symptomatic improvement. Continue to monitor for alcohol withdrawal symptoms. Continue to monitor in ICU for 1 more night. If remained stable, will consider transferring to the floor in the next 24 hr.
[2018-08-03] MEDS: ENOXAPARIN 30 MG/0.3 ML SQ SCH (17:24)
[2018-08-03] MEDS ORDERED: POTASSIUM CL SA 10 MEQ TAB PO ONE (18:28)
[2018-08-03] MEDS: LORazepam 2 MG/ML VIAL IV PRN (19:57)
[2018-08-04] MEDS: D5 0.9 NS 1,000 ML IV SCH ×4 (02:00→23:46)
[2018-08-04] MEDS: LORazepam 2 MG/ML VIAL IV PRN ×3 (02:47→22:11)
[2018-08-04] MEDS: HYDRALAZINE HCL 20 MG/ML VIAL IV PRN (03:14)
[2018-08-04 05:08] LABS: Absolute Lymphocytes (CBC) 1.6 K/uL (0.7-4.9); Absolute Monocytes 0.4 K/uL (0.1-1.3); Absolute Neutrophil 2.6 K/uL (1.8-8.0); Basophils % 1.1 % (0-1.3); Eosinophils % 2.9 % (0-4.4); Hematocrit 40.3 % (39.6-49.0); Lymphocytes % 33.8 % (15.3-44.8); MPV 8.3 fL (7.6-11.3); Monocytes % 8.9 % (3.3-12.3); RBC Red Blood Cell Count 4.53 M/uL (4.33-5.43)
[2018-08-04 05:13] LABS: ALT/SGPT 182 U/L (12-78); AST/SGOT 148 U/L (15-37); Albumin 3.1 g/dL (3.4-5.0); Alkaline Phosphatase 47 U/L (45-117); BUN Blood Urea Nitrogen 3 mg/dL (7-18); Bicarbonate 26 mmol/L (21-32); Creatine Phosphokinase 476 U/L (39-308); Glucose Level 86 mg/dL (74-106); Magnesium 1.6 mg/dL (1.8-2.4); Potassium 3.6 mmol/L (3.5-5.1); Protein, Total 6.1 g/dL (6.4-8.2); Sodium Level 138 mmol/L (136-145)
[2018-08-04] MEDS ORDERED: POTASSIUM CL SA 10 MEQ TAB PO ONE (08:00)
[2018-08-04] MEDS ORDERED: MAGNESIUM SULFATE 1 gm IVPB 1 GM/100 ML BAG IV ONE (08:00)
[2018-08-04] MEDS: FOLIC ACID 1 MG, MULTIVITAMINS INJ 10 ML, THIAMINE HCL 100 MG in NA CHLORIDE 0.9% 1,000 ML IV SCH (08:41)
[2018-08-04] MEDS: FAMOTIDINE 20 MG/2 ML VIAL IV SCH ×2 (08:41→22:11)
[2018-08-04] MEDS: ACETAMINOPHEN 500 MG TAB PO PRN ×2 (10:24→22:13)
[2018-08-04] MEDS: ENOXAPARIN 30 MG/0.3 ML SQ SCH (16:16)
--- NOTE | 2018-08-04 22:37 | P.PN ---
Subjective Date of Service: 08/04/18 Primary Care Provider: Celestine Mccall Chief Complaint: alcohol withdrawal, chest pain Subjective: Improving Patient seen and examined at bedside. No family at bedside. Chart reviewed and case discussed with nursing staff. Admitted for possible EtoH withdrawal - Still some bouts of confusion. Attempted to on both leads and start walking this morning. Continues to be high risk for fall No withdrawal symptoms noted overnight. Review of Systems 10-point ROS is otherwise unremarkable Physical Examination - Vital Signs Temperature: 98.6 F Blood Pressure: 146/86 Pulse: 94 Respirations: 16 Pulse Ox (%): 93 - Physical Exam General: In no apparent distress, Other (very sleepy) HEENT: Atraumatic, PERRLA, EOMI Neck: Supple, JVD not distended Respiratory: Clear to auscultation bilaterally, Normal air movement Cardiovascular: Regular rate/rhythm, Normal S1 S2 Gastrointestinal: Normal bowel sounds, No tenderness Musculoskeletal: No tenderness Integumentary: No rashes Neurological: Normal speech, Normal tone, Normal affect - Studies Medications List Reviewed: Yes Assessment And Plan - Plan Alcohol abuse with possible withdrawal: Stable, transfer to the floor. Monitor for alcohol withdrawal. Continue IV fluids and a banana bag Continue supportive care Will start librium, and convert ativan to prn Hyponatremia with acute renal injury: Resolved. Continue with IV fluids. Abdominal ultrasound obtained. Recent fall and elevated CPK/troponin suspect rhabdomyolysis: Improving Patient with recent fall. CT scan of the head negative for any acute abnormalities. Patient still unsteady on his feet, will get physical therapy to evaluate Hypoglycemia likely from malnutrition: Will provide glucose and IV as needed. Will need to address his malnutrition due to his alcohol abuse once stable. Hypertension: Will hold his MARTHA-inhibitor. Will provide IV medication as needed. Elevated liver function likely related to alcohol abuse: Will send for hepatitis panel and HIV, pending. Will monitor liver function tests, trending down as of now. Abdominal ultrasound with fatty infiltration of the liver and obscuring of pancreatic tail. This could be possible pancreatitis, lipase initially was elevated. Patient does have a history of chronic alcohol use and therefore high risk for pancreatitis. Clinically, patient without any abdominal pain at this time, tolerating a diet. Will continue to monitor clinically. If symptoms worsen, will get a CT abdomen to evaluate further. Hypocalcemia, after correction for hypoalbuminemia PTH elevated and ionized calcium pending. Patient has multiple etiologies that could cause hypocalcemia including chronic alcohol, rhabdo, electrolyte imbalance secondary to chronic alcoholism, dehydration Will monitor closely. Continue IV fluids. Bipolar disorder on lithium: [place] level was low. Will restart home medications, once we can reconcile home medication DVT prophylaxis: Lovenox GI prophylaxis: None Diet: Regular Disposition: Pending symptomatic improvement.
[2018-08-04] MEDS: chlordiazePOXIDE HCl 25 MG CAP PO SCH (23:45)
[2018-08-05 04:26] LABS: Absolute Lymphocytes (CBC) 1.5 K/uL (0.7-4.9); Absolute Monocytes 0.5 K/uL (0.1-1.3); Eosinophils % 5.4 % (0-4.4); Hematocrit 41.3 % (39.6-49.0); Lymphocytes % 34.6 % (15.3-44.8); MPV 8.1 fL (7.6-11.3); Monocytes % 12.2 % (3.3-12.3); RBC Red Blood Cell Count 4.56 M/uL (4.33-5.43)
[2018-08-05 04:36] LABS: ALT/SGPT 262 U/L (12-78); AST/SGOT 211 U/L (15-37); Albumin 3.2 g/dL (3.4-5.0); Alkaline Phosphatase 44 U/L (45-117); BUN Blood Urea Nitrogen 4 mg/dL (7-18); Bicarbonate 28 mmol/L (21-32); Bilirubin Total 0.8 mg/dL (0.2-1.0); Creatine Phosphokinase 252 U/L (39-308); Glucose Level 110 mg/dL (74-106); Magnesium 1.7 mg/dL (1.8-2.4); Potassium 3.6 mmol/L (3.5-5.1); Protein, Total 6.1 g/dL (6.4-8.2); Sodium Level 139 mmol/L (136-145)
[2018-08-05] MEDS ORDERED: MAGNESIUM SULFATE 1 gm IVPB 1 GM/100 ML BAG IV ONE (04:48)
[2018-08-05] MEDS ORDERED: POTASSIUM CL SA 10 MEQ TAB PO ONE (04:59)
[2018-08-05] MEDS: chlordiazePOXIDE HCl 25 MG CAP PO SCH ×2 (06:24→11:11)
[2018-08-05] MEDS: D5 0.9 NS 1,000 ML IV SCH (08:00)
[2018-08-05] MEDS: FOLIC ACID 1 MG, MULTIVITAMINS INJ 10 ML, THIAMINE HCL 100 MG in NA CHLORIDE 0.9% 1,000 ML IV SCH (08:59)
[2018-08-05] MEDS: FAMOTIDINE 20 MG/2 ML VIAL IV SCH (09:00)
--- NOTE | 2018-08-05 15:38 | P.DS ---
Admission Date: 08/01/18 Discharge Date: 08/05/18 Primary Care Provider: Celestine Mccall Disposition: ROUTINE DISCHARGE Discharge Condition: GOOD Reason for Admission: alcohol withdrawal, chest pain Brief History of Present Illness: Mr Yanez is a 48 years old male with history of HTN, Bipolar disorder, he states that use to drink heavily until 7 years ago. The patient is from [place] and is this area working. He started to drink again about 4 month ago, he is not very reliable with time frame, about 1/5 of vodka daily. He was not eating for the last 4 days, just binging more alcohol than usual. He states that since yesterday has been feeling more weak, with nausea but no vomiting, also chest pain, sharp, exacerbated with breathing movements, no SOB or diaphoresis episode. BS at home was 57 mg/dl. Last time he drank was this morning, alcohol level still elevated 168. The patient is asking for help, he wants to stop drinking. He denied any dark or bloody stools, no bloody emesis either. Lab work remarkable for hyponatreamia, abnormal liver enzymes, elevated creatinine, elevated total CK and trop I without ST-T changes on EKG. The patient states that he slept on the floor for several hours recently. At my encounter he was already shaking, tachycardic and hypertensive, no fever. Hospital Course: Alcohol abuse with possible withdrawal: Patient was admitted to the ICU for alcohol withdrawal. He was provided with supportive care and IVF. He was also given ativan prn. He was stabalized and then transferred to the floor. He was started on librium. He worked well with PT prior to discharge. He was discharged in a safe and stable manner. Recent fall and elevated CPK/troponin suspect rhabdomyolysis: Improving Patient with recent fall. CT scan of the head negative for any acute abnormalities. Patient still unsteady on his feet, will get physical therapy to evaluate. Did well with PT, walked the hallway without any problems. Ambulating without concerns here. Hypertension: Restarted lisinopril at discharge. Stable throughout. Elevated liver function likely related to alcohol abuse: LFTs trending down. Abdominal ultrasound with fatty infiltration of the liver and obscuring of pancreatic tail. This could be possible pancreatitis, lipase initially was elevated. Patient does have a history of chronic alcohol use and therefore high risk for pancreatitis. Clinically, patient without any abdominal pain at this time, tolerating a diet. Will continue to monitor clinically. Bipolar disorder on lithium: [place] level was low. Will restart home medications, once we can reconcile home medication Stable, no medication changes. He was provided with AA resources and PCP lists. He stated that he may be here for a little while or may also be moving back to [place], where he is originally from. Vital Signs/Physical Exam: Temp Pulse Resp BP Pulse Ox 97.9 F 104 H 16 169/90 H 99 08/05/18 12:00 08/05/18 12:00 08/05/18 12:00 08/05/18 12:00 08/05/18 12:00 General: Alert, In no apparent distress, Oriented x3 HEENT: Atraumatic, PERRLA, EOMI Neck: Supple, JVD not distended Respiratory: Clear to auscultation bilaterally, Normal air movement Cardiovascular: Regular rate/rhythm, Normal S1 S2 Gastrointestinal: Normal bowel sounds, No tenderness Musculoskeletal: No tenderness Integumentary: No rashes Neurological: Normal speech, Normal tone, Normal affect Lymphatics: No axilla or inguinal lymphadenopathy Laboratory Data at Discharge: WBC 4.2 K/uL (4.3-10.9) L 08/05/18 03:54 Hgb 13.9 g/dL (13.6-17.9) 08/05/18 03:54 Hct 41.3 % (39.6-49.0) 08/05/18 03:54 Plt Count 124 K/uL (152-406) L 08/05/18 03:54 PT 12.9 SECONDS (9.5-12.5) H 08/01/18 17:50 INR 1.10 08/01/18 17:50 APTT 32.3 SECONDS (24.3-36.9) 08/01/18 17:50 Sodium 139 mmol/L (136-145) 08/05/18 03:54 Potassium 3.6 mmol/L (3.5-5.1) 08/05/18 03:54 BUN 4 mg/dL (7-18) L 08/05/18 03:54 Creatinine 0.83 mg/dL (0.55-1.3) 08/05/18 03:54 Glucose 110 mg/dL (74-106) H 08/05/18 03:54 Magnesium 1.7 mg/dL (1.8-2.4) L 08/05/18 03:54 Total Bilirubin 0.8 mg/dL (0.2-1.0) 08/05/18 03:54 AST 211 U/L (15-37) H 08/05/18 03:54 ALT 262 U/L (12-78) H 08/05/18 03:54 Alkaline Phosphatase 44 U/L (45-117) L 08/05/18 03:54 Troponin I 0.10 ng/mL (0.0-0.045) H 08/02/18 13:48 Lipase Cancelled 08/02/18 Unknown Home Medications: Lisinopril [Prinivil*] 1 tab PO DAILY 08/01/18 [place] Carbonate [Lithotabs *] 0.5 tab PO BID 08/01/18 chlordiazePOXIDE HCl [Librium*] 25 mg PO Q6HR #20 cap 08/05/18 New Medications: chlordiazePOXIDE HCl [Librium*] 25 mg PO Q6HR #20 cap Patient Discharge Instructions: Please follow up with your primary care physician in week. Return to the emergency room for worsening symtpoms. Diet: Regular Activity: Ad brayden Time spent managing pt's care (in minutes): 55
[2018-08-05 18:53] LABS: HIV AG/AB 4TH GEN Non-reactive (Non-reactive)
[2018-08-08 22:45] LABS: HBsAG Nonreactive (Nonreactive); Hepatitis A IgM Antibody Nonreactive
== END 2018-08-05 14:08 | disposition home or self-care (01) | DRG 897 ==
LOC: ER 16:52 → ERHOLD 20:38 → 3RD-ICU 21:51 → 4TH 08-04 17:00
PROVIDERS: ADMIT Internal Medicine; ATTEND Internal Medicine
DX: F10.239 Alcohol dependence with withdrawal, unspecified (principal); M62.82 Rhabdomyolysis; E87.1 Hypo-osmolality and hyponatremia; N17.9 Acute kidney failure, unspecified; E46 Unspecified protein-calorie malnutrition; T51.0X1A Toxic effect of ethanol, accidental (unintentional), initial encounter; I10 Essential (primary) hypertension; R79.89 Other specified abnormal findings of blood chemistry; F31.9 Bipolar disorder, unspecified; E16.2 Hypoglycemia, unspecified; Z68.28 Body mass index [BMI] 28.0-28.9, adult; E83.51 Hypocalcemia; Z88.0 Allergy status to penicillin
CPT/HCPCS: 36415; 70450; 71045; 76700; 80048; 80053; 80074; 80076; 80178; 80307; 80320; 80329; 81003; 81015; 82040; 82310; 82330; 82550; 82962; 83690; 83735; 83930; 83970; 84132; 84439; 84443; 84484; 85025; 85610; 85730; 87389; 93005; 93306; 94760; 96361; 96365; 96366; 96372; 96375; 97163; 99285; J0360; J1650; J3411; J3475; J7030